=== PATIENT | female | born 1975 | race Caucasian/White ===

== ENCOUNTER 2018-12-30 17:27 | Emergency (ER) | payer OTHER ==
[~2018-12-30] VITALS: Ht 134.6 cm; Wt 89.9 kg
[2018-12-30 18:52] LABS: URINE BILIRUBIN NEGATIVE (Negative); URINE BLOOD 3+ (Negative); URINE CLARITY CLEAR; URINE COLOR YELLOW; URINE GLUCOSE-RANDOM* NEGATIVE (Negative); URINE KETONES NEGATIVE (Negative); URINE NITRITE-REFLEX NEGATIVE (Negative); URINE PROTEIN (DIPSTICK) 1+ (Negative); URINE SPECIFIC GRAVITY 1.025 (1.005-1.035); URINE UROBILINOGEN 0.2 E.U./dl (0.2-1.0)
[2018-12-30 18:55] LABS: URINE LEUKOCYTES-REFLEX 1+ (Negative)
[2018-12-30 19:03] LABS: BACTERIA-REFLEX 1-9 Few /HPF (None Seen); CASTS None Seen /LPF (None Seen); CRYSTALS None Seen /LPF (None Seen); MUCUS >6 Heavy strn/LPF (None Seen); SQUAMOUS 0-3 Few /LPF (0-3); URINE RBC >20 Many /HPF (0-2); URINE WBC-REFLEX 6-15 Few /HPF (0-5)
[2018-12-30 19:44] LABS: ABSOLUTE NEUTROPHILS 6.2 thou/uL (1.4-8.2); BASOPHILS 1.5 % (0.0-2.0); CALCIUM 9.4 mg/dL (8.5-10.1); EOSINOPHILS 1.8 % (0.0-3.0); HEMATOCRIT 43.6 % (37.0-47.0); HEMOGLOBIN 14.8 gm/dL (12.0-15.0); LYMPHOCYTES 35.1 % (24.0-44.0); MCH 27.9 pg (26.0-34.0); MCHC 33.9 g/dL (28.0-37.0); MCV 82.2 fL (80.0-100.0); MONOCYTES 6.1 % (1.0-8.0); PLATELET COUNT 381 thou/uL (150-400); POLYS 55.5 % (36.0-66.0); RBC 5.31 mil/uL (4.20-5.00); RDW 13.4 % (10.5-14.5); WBC 11.2 thou/uL (4.0-11.0)
[2018-12-30 19:47] LABS: POTASSIUM 2.7 mmol/L (3.5-5.1)
[2018-12-30] MEDS ORDERED: BISOPROLOL FUMAR5 MG PO ×2 (21:21→22:44)
[2018-12-30] MEDS ORDERED: INDAPAMIDE1.25 MG PO ×2 (21:21→22:44)
[2018-12-30] MEDS ORDERED: CAPOTEN 50MG TA50 MG PO ×2 (21:22→22:44)
[2018-12-30] MEDS ORDERED: KLOR-CON 1010 MEQ PO (22:44)
[2018-12-30 23:02] VITALS: BP 161/106
== END 2018-12-30 23:02 | disposition home or self-care (01) ==
LOC: ER 17:27
PROVIDERS: Emergency Medicine
DX: E87.6 Hypokalemia (principal); R60.0 Localized edema; I10 Essential (primary) hypertension; Z87.442 Personal history of urinary calculi